=== PATIENT | female | born 1950 | race Caucasian/White ===

== ENCOUNTER 2016-03-24 15:53 | Emergency (ER) | payer SELFPAY ==
--- NOTE | 2016-03-24 16:09 | CPEKG ---
Heart Rate: 68 RR Interval: 882 P-R Interval: 164 QRSD Interval: 80 QT Interval: 384 QTC Interval: 409 P [place]: 48 QRS [place]: 63 T Wave [place]: 43 EKG Severity - NORMAL ECG - EKG Impression: SINUS RHYTHM Electronically Signed By: Joana Rodriguez 24-Mar-2016 21:53:05
[2016-03-24] MEDS ORDERED: fentaNYL 100 MCG/2 ML INJ IVP ONE (16:14)
[2016-03-24] MEDS ORDERED: ONDANSETRON 4 MG/2 ML VIAL IVP ONE (16:14)
--- NOTE | 2016-03-24 16:14 | EDPHY ---
H & P HPI/ROS: CHIEF COMPLAINT: ankle pain HISTORY OF PRESENT ILLNESS: Patient is a 65-year-old female who presents to the emergency department via EMS after injuring her right ankle. Patient was running on a treadmill and her right ankle gave out. She twisted her ankle and fell. She complained of severe right lateral ankle pain. It does not radiate. She then thinks she may have had a quick episode of fainting. She denies any headache neck pain chest pain or shortness of breath. She denies any other injury. She states I think I fainted because of the pain. She has no palpitations or chest pain on arrival to the emergency department. REVIEW OF SYSTEMS: My complete review of systems is negative except as mentioned in the HPI. Past Medical/Surgical History: Previous ankle injury Smoking Status: Former smoker Physical Exam: Vitals noted GENERAL: Well-appearing, in no acute distress, alert. Smiling. HEENT: Eyes normal to inspection, normal pharynx, no signs of dehydration. NECK: No thyromegaly, no lymphadenopathy, supple. Nexus negative. RESPIRATORY: Clear to auscultation bilaterally, no rales, rhonchi or wheezing. CVS: Regular rate and rhythm, no rubs, murmurs, or gallops. ABDOMEN: Soft, nontender, nondistended, no organomegaly. BACK: Normal to inspection, no CVA tenderness. No spinal tenderness. SKIN: Normal color, no rash, warm, dry. No pallor. EXTREMITIES: Patient has swelling to her right lateral malleolus. There is tenderness palpation. No crepitus. Her medial malleolus and foot are nontender. She has no tib-fib proximal tenderness to palpation. Her knee is atraumatic. NEURO/PSYCH: Higher functions: Alert and Oriented x3. Normal speech and cognition. Normal mood and affect. Cranial nerves: Normal as tested. Cerebellar: Normal as tested. Good finger to nose, good [id number], normal gait. Peripheral exam: Normal motor exam. Normal sensation. Constitutional: Initial Vital Signs Temperature (C) 36.7 C 03/24/16 16:10 Heart Rate 76 03/24/16 16:10 Respiratory Rate 18 03/24/16 16:10 Blood Pressure 124/70 H 03/24/16 16:10 O2 Sat (%) 94 03/24/16 16:10 O2 Delivery Mode Room Air Allergies/Adverse Reactions: No Known Allergies Allergy (Unverified 04/03/14 19:15) Home Medications: Medication Instructions Recorded Hydrocodone/APAP 5/325 [[place] 1 - 2 each PO Q6 PRN #20 tab 04/03/14 5/325] VAGIFEM 04/03/14 Vicodin 04/03/14 buPROPion 04/03/14 Ondansetron Odt [Zofran Odt 4 mg 4 mg PO Q4PRN PRN #7 tab 03/24/16 (*)] oxyCODONE/APAP 5/325 [Percocet 1 - 2 tab PO Q4PRN PRN #11 tab 03/24/16 5/325 (*)] Medical Decision Making - Diagnostics EKG Interpretation: EKG shows normal sinus rhythm, normal rate, normal axis, normal intervals. There are no ST or T-wave abnormalities. EKG is normal as interpreted by me. ED Course/Re-evaluation: In the emergency department I met EMS on arrival. I took report from the healthcare liaison. Patient was given fentanyl 15 mcg IV for pain control. She was given Zofran 4 mg IV for nausea. An EKG was ordered because of the fainting episode. X-ray of her right ankle was ordered. EKG shows normal sinus rhythm, normal rate, normal axis, normal intervals. There are no ST or T-wave abnormalities. EKG is normal as interpreted by me. X-ray: Please refer the dictated report. The patient has soft tissue swelling over lateral malleolus. There is a distal tip fracture of the fibula. No dislocation. Discussed the result with the patient. I answered all her questions. She was placed in the same some boot. Post splint placement the patient was neurovascularly intact distally. The patient was given instructions on crutch use. Patient was given warnings prior to leaving. She will follow up with Dr. Collins from Orthopedics. Patient was given Percocet and Zofran as prescriptions. Differential Diagnosis: My differential includes but is not limited to ankle fracture, dislocation, sprain, contusion. Patient states she fainted briefly after injuring her right ankle. This occurred after the event. I doubt that she had dysrhythmia or ACS causing her symptoms. - Data Points Medications Given: Discontinued Medications Fentanyl (Sublimaze) 100 mcg IVP EDNOW ONE Stop: 03/24/16 16:15 Last Admin: 03/24/16 16:25 Dose: 100 mcg Ondansetron HCl (Zofran) 4 mg IVP EDNOW ONE Stop: 03/24/16 16:15 Last Admin: 03/24/16 16:26 Dose: 4 mg Departure - Departure Disposition: Home, Routine, Self-Care Clinical Impression: Right ankle sprain Qualifiers: Encounter type: initial encounter Involved ligament of ankle: deltoid ligament Qualifier Code: (S93.421A) Sprain of deltoid ligament of right ankle, initial encounter Fracture of distal end of fibula Qualifiers: Encounter type: initial encounter Fracture type: closed Fracture morphology: other fracture Laterality: right Qualifier Code: (S82.831A) Other fracture of upper and lower end of right fibula, initial encounter for closed fracture Condition: Good Instructions: Ankle Sprain (ED), Ankle Fracture (ED) Additional Instructions: Your x-ray showed a small avulsion fracture at the tip of your fibula. He will likely have a ligamentous injury as well based on the swelling. He has close follow-up with Orthopedics. Keep her splint in place. You should be non weight -bearing until follow-up. Referrals: Dedrick Collins MD [Medical Doctor] - 5-7 days, call for appt. Prescriptions: oxyCODONE/APAP 5/325 [Percocet 5/325 (*)] 1 - 2 tab PO Q4PRN PRN #11 tab PRN Reason: For Moderate To Severe Pain Ondansetron Odt [Zofran Odt 4 mg (*)] 4 mg PO Q4PRN PRN #7 tab PRN Reason: For Nausea & Vomiting
--- NOTE | 2016-03-24 16:29 | DX ---
Right ankle, 3 views at 1614 hours History: Trauma, pain. Findings: Lateral soft tissue swelling. Several bone fragments adjacent to the distal tip of the fib cipriano measure up to 4 mm, consistent with acute avulsion fractures with lateral soft tissue swelling. M edial malleolus appears intact. No widening of the ankle mortise. Talar done appears intact. Impression: Distal fibular tip lateral malleolus avulsion fractures with lateral soft tissue swellin g.
[2016-03-24 17:24] VITALS: BP 100/72; PULSE 66; RESP 15; TEMP 98.8; O2SAT 91
== END 2016-03-24 17:24 | disposition home or self-care (01) ==
LOC: EDUNIT#
DX: S82.831A Other fracture of upper and lower end of right fibula, initial encounter for closed fracture (principal); S93.421A Sprain of deltoid ligament of right ankle, initial encounter; Z87.891 Personal history of nicotine dependence; W18.39XA Other fall on same level, initial encounter; Y99.8 Other external cause status; Y93.A1 Activity, exercise machines primarily for cardiorespiratory conditioning
CPT/HCPCS: 96374; J2405; J3010; L4386

== ENCOUNTER → 2016-09-25 | Outpatient (CLI) | payer OTHER | LOC: BMCIMAGING 08:06 | PROVIDERS: ATTEND Obstetrics & Gynecology Gynecology | DX: Z12.31 Encounter for screening mammogram for malignant neoplasm of breast (principal); Z80.3 Family history of malignant neoplasm of breast | CPT/HCPCS: G0202 ==

== ENCOUNTER → 2016-10-01 | Outpatient (CLI) | payer OTHER | LOC: BMCIMAGING 10:08 | PROVIDERS: ATTEND Obstetrics & Gynecology Gynecology | DX: Z12.39 Encounter for other screening for malignant neoplasm of breast (principal); R92.8 Other abnormal and inconclusive findings on diagnostic imaging of breast | CPT/HCPCS: G0206 ==

== ENCOUNTER → 2017-05-07 | Outpatient (CLI) | payer OTHER | LOC: FIMAGING 08:12 | PROVIDERS: ATTEND Family Medicine | DX: M85.80 Other specified disorders of bone density and structure, unspecified site (principal); Z82.49 Family history of ischemic heart disease and other diseases of the circulatory system ==

== ENCOUNTER → 2017-09-26 | Outpatient (CLI) | payer OTHER | LOC: BMCIMAGING 12:30 | PROVIDERS: ATTEND Obstetrics & Gynecology Gynecology | DX: Z12.31 Encounter for screening mammogram for malignant neoplasm of breast (principal); Z80.3 Family history of malignant neoplasm of breast ==